=== PATIENT | male | born 1965 ===

== ENCOUNTER 2018-01-10 11:19 | Outpatient (CLI) | payer OTHER ==
[~2018-01-10] VITALS: Ht 152.4 cm; Wt 81.6 kg
[~2018-01-10 11:19] MED LIST: LIPO-FLAVONOID1 EACH PO; MECLIZINE HCL25 MG PO
[2018-01-10] MEDS ORDERED: LIPO-FLAVONOID1 EACH PO (12:26)
[2018-01-10] MEDS ORDERED: MECLIZINE HCL25 MG PO (12:26)
== END 2018-01-10 11:40 | disposition home or self-care (01) ==
LOC: OFIC 805 11:19
DX: H93.12 Tinnitus, left ear (principal); H61.23 Impacted cerumen, bilateral; H81.392 Other peripheral vertigo, left ear

== ENCOUNTER 2018-06-20 09:57 | Outpatient (CLI) | payer OTHER ==
[~2018-06-20] VITALS: Ht 152.4 cm; Wt 81.6 kg
[2018-06-20] MEDS ORDERED: MECLIZINE HCL25 MG PO (11:10)
[2018-06-20] MEDS ORDERED: LIPO-FLAVONOID1 EACH PO (11:18)
== END 2018-06-20 10:15 | disposition home or self-care (01) ==
LOC: OFIC 805 09:57
DX: H90.42 Sensorineural hearing loss, unilateral, left ear, with unrestricted hearing on the contralateral side (principal); H93.12 Tinnitus, left ear; H61.23 Impacted cerumen, bilateral; H81.392 Other peripheral vertigo, left ear

== ENCOUNTER 2018-09-05 11:33 | Outpatient (CLI) | payer OTHER ==
[~2018-09-05] VITALS: Ht 152.4 cm; Wt 81.6 kg
[2018-09-05] MEDS ORDERED: MECLIZINE HCL25 MG PO (12:08)
== END 2018-09-05 11:45 | disposition home or self-care (01) ==
LOC: OFIC 805 11:33
DX: H90.42 Sensorineural hearing loss, unilateral, left ear, with unrestricted hearing on the contralateral side (principal); H93.12 Tinnitus, left ear; H81.12 Benign paroxysmal vertigo, left ear

== ENCOUNTER 2019-03-13 12:14 | Outpatient (CLI) | payer OTHER ==
[~2019-03-13] VITALS: Ht 152.4 cm; Wt 81.6 kg
[2019-03-13] MEDS ORDERED: LIPO-FLAVONOID1 EACH PO (13:35)
[2019-03-13] MEDS ORDERED: MECLIZINE HCL25 MG PO (13:36)
== END 2019-03-13 12:30 | disposition home or self-care (01) ==
LOC: OFIC 805 12:14
DX: H90.42 Sensorineural hearing loss, unilateral, left ear, with unrestricted hearing on the contralateral side (principal); H93.13 Tinnitus, bilateral; H81.399 Other peripheral vertigo, unspecified ear

== ENCOUNTER 2019-09-25 11:18 | Outpatient (CLI) | payer OTHER ==
[~2019-09-25] VITALS: Ht 152.4 cm; Wt 81.6 kg
[2019-09-25] MEDS ORDERED: MECLIZINE HCL25 MG PO (13:04)
[2019-09-25] MEDS ORDERED: LIPO-FLAVONOID1 EACH PO (13:04)
== END 2019-09-25 15:13 | disposition home or self-care (01) ==
LOC: OFIC 805 11:18
DX: H90.42 Sensorineural hearing loss, unilateral, left ear, with unrestricted hearing on the contralateral side (principal); H93.12 Tinnitus, left ear; H61.23 Impacted cerumen, bilateral; H81.392 Other peripheral vertigo, left ear